=== PATIENT | female | born 1960 | race Caucasian/White ===

== ENCOUNTER 2021-11-23 14:50 | Outpatient (CLI) | payer BC, SELFPAY ==
--- NOTE | ~2021-11-23 | XR_ITS ---
EXAMINATION: XR knee RT min 4V DATE: 11/23/2021 15:18 INDICATION: Right knee pain. TECHNIQUE: 4 views of right knee were obtained. COMPARISON: None. FINDINGS: Bone alignment is normal. No fracture. There is mild osteoarthritis of medial and lateral c ompartments and moderate osteoarthritis of patellofemoral compartment. There is a small knee joint ef fusion. IMPRESSION: 1. Moderate right knee osteoarthritis. 2. Small right knee joint effusion. Reviewed, dictated and finalized at location B.
--- NOTE | ~2021-11-23 | US_ITS ---
EXAMINATION: US venous doppler LE RT DATE: 11/23/2021 15:29 INDICATION: Pain in right lower limb. TECHNIQUE: Grayscale images without and with compression and Doppler images of the right lower extrem ity veins were obtained. COMPARISON: None. FINDINGS: The right common femoral vein, profunda (deep) femoral vein, femoral vein, popliteal vein, peroneal v ein, posterior tibial veins, and greater saphenous vein are patent. Incidental note of compressible v aricosities in the area of pain. IMPRESSION: 1. Patent bilateral lower extremity veins. No evidence of deep venous thrombosis. Varicose veins. Reviewed, dictated and finalized at location K. IMPRESSION: 1. Patent bilateral lower extremity veins. No evidence of deep venous thrombos is. Varicose veins.
== END 2021-11-23 14:51 | disposition home or self-care (01) ==
PROVIDERS: PCP Physician Assistant; Visit Provider Physician Assistant
DX: M17.11 Unilateral primary osteoarthritis, right knee (principal); M25.461 Effusion, right knee
CPT/HCPCS: 73564; 93971

== ENCOUNTER 2023-05-28 01:42 | Day surgery (SDC) | payer BC, SELFPAY ==
[2023-05-17 14:15] VITALS: BMI 40.4
--- NOTE | 2023-05-25 10:11 | SUR.PREOP ---
Patient called and message left regarding upcoming appointment and prep starting on Sunday
[2023-05-28 11:24] VITALS: BP 137/74; PULSE 85; RESP 18; TEMP 36.4; O2SAT 98
[2023-05-28] MEDS: LACTATED RINGERS 1,000 ML 150 ML IV CONT (11:32)
--- NOTE | 2023-05-28 11:38 | P.PNAN_ITS ---
Anes - Initial Pre Proc Eval Procedure: Operation Date: 05/28/23 12:30 Proposed Procedures p Colonoscopy - Jimbo Otoole MD Date/Time: 05/28/23 11:38 Surgeon: Jimbo Otoole MD Pre Op Diagnosis: neoplasm screening Patient Data Age: 62 Gender: F Height: 1.7 m Weight: 118.4 kg Last Vital Signs Temp 97.5 F L 05/28/23 11:24 Pulse 85 05/28/23 11:24 Resp 18 05/28/23 11:24 BP 137/74 05/28/23 11:24 Pulse Ox 98 05/28/23 11:24 O2 Del Method Room Air 05/28/23 11:24 Allergies Allergy/AdvReac Type Severity Reaction Status Date / Time No Known Allergies Allergy Verified 05/28/23 11:22 Home Medications Medication Instructions Recorded Confirmed Type lisinopril 40 mg tablet 40 mg PO DAILY 03/01/21 05/28/23 History montelukast 10 mg tablet 10 mg PO DAILY 03/01/21 05/28/23 History omeprazole 20 mg capsule,delayed 20 mg PO DAILY 03/01/21 05/28/23 History release rosuvastatin 5 mg tablet 5 mg PO DAILY 03/01/21 05/28/23 History albuterol sulfate 90 mcg/actuation 1 - 2 inh inhalation Q4-6H PRN 11/06/22 05/28/23 Rx aerosol inhaler shortness of breath or wheezing #8.5 grams amlodipine 5 mg tablet 10 mg PO DAILY 02/28/23 05/28/23 History Breo Ellipta 100 mcg-25 mcg/dose 1 inh inhalation Q24H #60 ea 03/12/23 05/28/23 Rx powder for inhalation (fluticasone furoate-vilanterol) Patient hx anesthesia problems: none Family hx anesthesia problems: none Results Review: All pre-operative results and documents have been reviewed as part of the pre- operative evaluation. [facility] Past Medical History Medical History Acute respiratory failure CHF (congestive heart failure) Depression GERD (gastroesophageal reflux disease) HTN (hypertension) Pneumonia Surgical History Surgical History Status post tracheostomy Family History Family History Mother Diabetes mellitus Sibling Hypertension Social History Social History Smoking packs per day: 1 Smoking cigarettes per day: 20.0 Years smoked: 30 Smoking pack-years: 30.00 Smoking status: Former smoker Smoking end date: 07/23/18 Alcohol intake: current Anes - Eval Final PreProcedure Day of Procedure 05/28/23 11:38 Patient weight: morbidly obese Heart: regular rate and rhythm Lungs: clear to auscultation Airway: Mallampati scale class II Neurological: alert and oriented Last oral intake: >/= 8 hours ASA classification: III Emergent: no Anesthetic plan: proceed Anesthesia type and monitoring: general GIVS and standard monitoring Results Review: All pre-operative results and documents have been reviewed as part of the pre- operative evaluation. Informed Consent: The patient's anesthetic plan and its attendant risks and benefits were discussed with the patient/family/POA. Questions were solicited and answers provided to the satisfaction of the patient/family/POA.
--- NOTE | 2023-05-28 11:53 | PM.HPGS ---
History of Present Illness History of Present Illness Consent: Risks, benefits, and alternatives have been discussed and questions answered. Patient agrees to proceed with procedure. Chief complaint: neoplasm screening Narrative: Char Contreras is a 62 year old female Presents for screening colonoscopy. Patient has current weight appetite bowel movements are normal. She denies abdominal pain. She has had no bleeding. Family history is noncontributory. Review of Systems Review of Systems: Review of systems noncontributory. [facility] Past Medical History Medical History Acute respiratory failure CHF (congestive heart failure) Depression GERD (gastroesophageal reflux disease) HTN (hypertension) Pneumonia Surgical History Surgical History Status post tracheostomy Family History Family History Mother Diabetes mellitus Sibling Hypertension Social History Social History Smoking packs per day: 1 Smoking cigarettes per day: 20.0 Years smoked: 30 Smoking pack-years: 30.00 Smoking status: Former smoker Smoking end date: 07/23/18 Alcohol intake: current Meds Home Medications and Allergies Home Medications Medication Instructions Recorded Confirmed Type lisinopril 40 mg tablet 40 mg PO DAILY 03/01/21 05/28/23 History montelukast 10 mg tablet 10 mg PO DAILY 03/01/21 05/28/23 History omeprazole 20 mg capsule,delayed 20 mg PO DAILY 03/01/21 05/28/23 History release rosuvastatin 5 mg tablet 5 mg PO DAILY 03/01/21 05/28/23 History albuterol sulfate 90 mcg/actuation 1 - 2 inh inhalation Q4-6H PRN 11/06/22 05/28/23 Rx aerosol inhaler shortness of breath or wheezing #8.5 grams amlodipine 5 mg tablet 10 mg PO DAILY 02/28/23 05/28/23 History Breo Ellipta 100 mcg-25 mcg/dose 1 inh inhalation Q24H #60 ea 03/12/23 05/28/23 Rx powder for inhalation (fluticasone furoate-vilanterol) Allergies Allergy/AdvReac Type Severity Reaction Status Date / Time No Known Allergies Allergy Verified 11/06/23 11:22 Vital Signs Vital Signs - 24 hr 05/28/23 11:24 Temperature 97.5 F L Pulse Rate 85 Respiratory Rate 18 Blood Pressure 137/74 Pulse Oximetry 98 Oxygen Delivery Room Air Exam Narrative: Physical exam reveals patient to be alert. Vital signs stable. HEENT exam is unremarkable. Patient is anicteric. Lungs are clear to auscultation and percussion. Heart is without murmur or extra sounds. Abdomen bowel sounds are present soft nontender with no organomegaly. Digital external rectal exam normal. Assessment and Plan Assessment and plan (1) Encounter for screening colonoscopy: Code(s): Z12.11 - Encounter for screening for malignant neoplasm of colon Status: Acute Assessment and Plan: Patient presents today for screening colonoscopy. She appears to be at average risk for colon polyps. Further recommendations may be given after endoscopy.
[2023-05-28 12:59] VITALS: BP 124/64; PULSE 69; RESP 20; O2SAT 100
[2023-05-28 13:09] VITALS: BP 132/71; PULSE 64; RESP 20; O2SAT 99
[2023-05-28 13:19] VITALS: BP 141/72; PULSE 61; RESP 17; O2SAT 99
== END 2023-05-28 13:27 | disposition home or self-care (01) ==
PROVIDERS: PCP Physician Assistant; Visit Provider Internal Medicine Gastroenterology
PROC: 0DJD8ZZ Inspection of Lower Intestinal Tract, Via Natural or Artificial Opening Endoscopic (ICD-10-PCS; CPT 45378; principal; 2023-05-28 12:30)
DX: Z12.11 Encounter for screening for malignant neoplasm of colon (principal); K64.8 Other hemorrhoids; K63.5 Polyp of colon; I11.0 Hypertensive heart disease with heart failure; I50.9 Heart failure, unspecified; F32.A Depression, unspecified; K21.9 Gastro-esophageal reflux disease without esophagitis; E66.01 Morbid (severe) obesity due to excess calories; Z68.41 Body mass index [BMI] 40.0-44.9, adult; Z93.0 Tracheostomy status; Z79.51 Long term (current) use of inhaled steroids; Z87.891 Personal history of nicotine dependence; Z87.09 Personal history of other diseases of the respiratory system
CPT/HCPCS: 45385; 88305; J2704; J7120

== ENCOUNTER 2025-06-25 08:32 | Outpatient (CLI) | payer MEDICARE, SELFPAY ==
--- NOTE | ~2025-06-25 | MM_ITS ---
EXAMINATION: MM screening meliza BI w prieto HISTORY: Screening. TECHNIQUE: Craniocaudal and mediolateral oblique 3-D tomosynthesis images were obtained and synthetic 2-D images were generated. CAD analysis was submitted and interpreted. COMPARISON: None available. BREAST PARENCHYMAL COMPOSITION: Not Dense: The breasts are almost entirely fatty FINDINGS: No suspicious masses are seen. There are no suspicious calcifications. No unexplained architectural distortion is seen. There are no skin or nipple abnormalities identified. There is no adenopathy seen on the images submitted. IMPRESSION: No mammographic evidence to suggest malignancy is seen. The patient may return to screening mammography as per ACR guidelines. BI-RADS 1 - Negative. Reviewed, dictated and finalized at location C. O GAME DESIGNER
--- OUTSIDE RECORDS SUMMARY | 2025-06-25 08:57 | XMS_ITS | Clinical Summary ---
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 Gender Identity Not on file Sexual Orientation Not on file Plan of Treatment Health Maintenance Due Date Last Done Comments Hepatitis C Virus (HCV) Screening 1960 TdaP Immunization 1960 Pap Smear 11/05/1980 Cervical Cancer Screening (CCS) 11/05/1989 HPV/Cotest 11/05/1989 Cologuard 11/05/2004 Colonoscopy 11/05/2004 Colorectal Cancer Screening 11/05/2004 Immunochemical Fecal Occult Blood 11/05/2004 Pneumococcal Immunization (5 0+ years) (1 of 1 - PCV) 11/05/2009 Zoster Immunization (1 of 2) 11/05/2009 Influenza Immunization (#1) 2025 06/09/2020 SARS-COV-2 Immunization ( - season) 2025 Respiratory Syncytial Virus (RSV) Immunization (Adult) (1 - 1-dose 75+ series) 11/05/2034 Hepatitis B Immunization Aged Out No longer eligible based on patient's age to complete this topic Human Papillomavirus (HPV) Immunization Aged Out No longer eligible b ased on patient's age to complete this topic Meningococcal Immunization (ACWY) Aged Out No longer eligible based on patient's age to complete this topic Rotavirus Immunization Aged Out No lo nger eligible based on patient's age to complete this topic
--- OUTSIDE RECORDS SUMMARY | 2025-06-25 08:57 | XMS_ITS | Clinical Summary ---
Author Organization [facility] [employer] Address [address] [place] [address] Care Team Providers Care Community Development Manager Name Role Phone Shelbie Frey RN Unavailable [phone] Alida Salomon Primary Care Pr ovider Source Comments [facility],non-owned Affiliates and Associated Physician Practices is amultiple site organization consisting of ambulatory clinics and hospital sitesin [place], [place], [place] and [place]. This disclosure is being madepursuant to the Care Everywhere program and may not contain all information available regarding this patient. Last updated 18.[facility] [employer] Allergies No known active allergies Medications * Be aware that medications may not be up to date on this document. Alwaysverify current medications with the patient. montelukast (SINGULAIR) 10 MG tablet Take 10 mg by mouth at bedtime 9 Active FLUoxetine (PROZAC) 20 MG capsule Take 20 mg by mouth once daily Active lisinopril (PRINIVIL; ZESTRIL) 40 MG tablet Take 40 mg by mouth once daily Active amLODIPine (NORVASC) 5 MG tablet Take 5 mg by mouth once daily Active albuterol HFA (PROVENTIL;VENT ROSCOE;PROAIR) 108 (90 Base) MCG/ACT inhaler Inhale 1 puff by mouth every 6 hours as needed 9 Active HYDROcodone-ad taminophen (NORCO) 5-325 MG tablet Take 1 tablet by mouth every 4 hours as needed (Breakthrough pain not controlled with ibuprofen and tylenol) 6 tablet 9 Active BREO ELLIPTA 100-25 MCG/INH inhaler Inhale 1 puff by mouth once daily 0 Active rosuvastatin (CRESTOR) 5 MG tablet Take 5 mg by mouth once daily Active omeprazole (PriLOSEC) 20 MG capsuleIndicati ons:Tracheal stenosis TAKE 1 CAPSULE BY MOUTH EVERY DAY 90 capsule 1 2 Active Active Problems Problem Noted Date Diagnosed Date Cardiomyopathy, idiopathic 11/14/[address] 08/20/2018 Pneumomediastinum 08/20/2018 Acute on chronic respiratory failure with hypoxi a 08/19/2018 Pneumonia of left lung due to Pseudomonas specie s Tracheal stenosis Immunizations Immunization Administration Dates Next Due INFLUENZA VACCINE, QUADR. (F LUZONE; FLULAVAL; FLUARIX; AFLURIA QUADRIVALENT; 6MO+), 0.5 ML (IIV4) 08/23/2018 Family History Medical History Relation Name Comments Diabetes - Type 1 Father Diabetes - Type 1 Mother Hypertension Sister Relation Name Status Comments Father Mother Sister Social History Tobacco Use Types Packs/Day Years Used Date Smoking Tobacco: Former Cigarettes 2 34 0 07/1984 - 07/2018 Smokeless Tobacco: Never Tobacco Cessation:Ready to Q uit: No; Counseling Given: Yes Alcohol Use Standard Drinks/Week Comments No 0 (1 standard drink = 0.6 oz pur e alcohol) Comments No Sex and Gender Information Value Date Recorded Sex Assigned at Not on file 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 Gender Identity Not on file Sexual Orientation Not on file Last Filed Vital Signs Vital Sign Reading Time Taken Comments Blood Pressure 161/81 02/03/2022 1:54 PM CDT Pulse 81 02/03/2022 1:54 PM CDT Temperature 36.5 C (97.7 F) 02/27/2019 11:05 AM CDT Respiratory Rate 15 02/27/2019 11:45 AM CDT Oxygen Saturation 98% 02/27/2019 11:45 AM CDT Inhaled Oxygen Concentration 100% 12/26/2018 8 :00 AM CDT Weight 130 kg (286 lb 9.6 oz) 02/03/2022 1:54 PM CDT Height 170.2 cm (5' 7) 02/03/2022 1:54 PM CDT Body Mass Index 44.89 02/03/2022 1:54 PM CDT Plan of Treatment Health Maintenance Due Date Last Done Comments BONE DENSITY TESTING 1960 COLON MONITORING 1959 COLONOSCOPY - COLON CA SCREENING 1959 CT COLONOGRAPHY - COLON CA SCREENING 1959 FIT - COLON CA SCREENING 1959 FLEX SIG - COLON CA SCREENING 1959 MAMMOGRAM 1959 HIV SCREENING 11/05/1974 DTAP/TDAP/TD VACCINES (1 - Tdap) 11/05/1978 PAP SMEAR 11/05/1980 Cervical Cancer Screening 11/05/1989 PAP with HPV 11/05/1989 LUNG CANCER SCREENING 11/05/2009 PNEUMOCOCCAL VACCINE 50+ (1 of 1 - PCV) 11/05/2009 Respiratory Syncytial Virus (RSV) Vaccine Pt: or over 60 yrs (1 - Risk 50-74 years 1-dose series) 11/05/2009 ZOSTER VACCINE (1 of 2) 11/05/2009 SCREENING FOR DIABETES 02/03/2022 9, 12/25/2018, 12/25/2018, Additional history exists COLOGUARD (AGES 45-75) - COLON CA SCREENING 04/14/2022 04/14/2019 Colorectal Cancer Screening 04/14/2022 DEPRESSION SCREENING 07/23/2024 COVID-19 VACCINE ( season) 2025 07/08/2021 INFLUENZA VACCINE (#1) 2025 06/09/2020, 2018 HEPATITIS C SCREENING Completed 08/26/2018 HEPATITIS B VACCINE Aged Out No longe r eligible based on patient's age to complete this topic HIB VACCINE Aged Out No longer eligi ble based on patient's age to complete this topic HPV VACCINE Aged Out No longer eligi ble based on patient's age to complete this topic MENINGOCOCCAL (Group B) VACCINE SHARED DECISION-MAKING Aged Out No longer eligible based on patient's age to complete this topic MENINGOCOCCAL GROUPS A/C/Y/W VACCINE Aged Out No longer eligible based on patient's age to complete this topic Medical Devices Implanted Type Area Wellness Instructor Device Identifier Shelf Expiration Date Model / Serial / Lot Evicel Implanted:Qty: 1 on 12/24/2018 by Armando Dennis MD at [facility] N/A: [employer] EVICEL / [id number] / [id number] Description:Thawed on 019 Procedures Procedure Name Priority Date/Time Associated Diagnosis Comments BASIC METABOLIC PANEL (CALCIUM TOTAL) Routine 12/27/2018 3:43 AM CDT HEPATITIS SCREEN ACUTE Routine 08/26/2018 12:01 PM RADIO ENGINEERING TEACHER from Last 3 Months or Most Recently Relevant to Health Maintenance Results * (ABNORMAL) BASIC METABOLIC PANEL (CALCIUM TOTAL) (12/27/2018 3:43 AM CDT) BUN 24 7 - 26 mg/dL 12/27/2018 4:14 AM [facility] Creatinine 1.1 0.6 - 1.2 mg/dL 12/27/2018 4:14 AM [facility] Sodium 139 136 - 145 mmol/L 12/27/2018 4:14 AM [facility] Potassium 4.2 3.5 - 4.5 mmol/L 12/27/2018 4:14 AM [facility] Chloride 102 98 - 107 mmol/L 12/27/2018 4:14 AM [facility] CO2 27 22 - 29 mmol/L 12/27/2018 4:14 AM [facility] Glucose 86 70 - 115 mg/dL 12/27/2018 4:14 AM [facility] Calcium 8.9 8.4 - 10.2 mg/dL 12/27/2018 4:14 AM [facility] Anion Gap 14 8 - 18 12/27/2018 4:14 AM [facility] BUN/Creatinine Ratio 22 7 - 23 12/27/2018 4:14 AM [facility] Osmolality Calculated 291 270 - 300 mOsm/kg 12/27/2018 4:14 AM CDT [facility] eGFR 51(L) >60 mL/min/1.7 3 m2 12/27/2018 4:14 AM T [facility] Blood BLOOD SPECIMEN / Unknown Lab Venipuncture / Unknown 12/27/2018 3:43 AM CDT 12/27/2018 3:50 AM CDT Kris Montaño MD LAB - CHEMISTRY ORDERABLES Final Result Performing Organization Address City/[facility]/ZIP Co de Phone Number [address] [phone] * HEPATITIS SCREEN ACUTE (08/26/2018 12:01 PM RADIO ENGINEERING TEACHER) Hepatitis A Virus Antibody IgM Non-react rancho Non-reac tive 08/26/2018 12:57 PM RADIO ENGINEERING TEACHER [facility] Hepatitis B Virus Surface Antigen Non-react rancho Non-reac tive 08/26/2018 12:57 PM [facility] Hepatitis B Core Virus Antibody IgM Non-react rancho Non-reac tive 08/26/2018 12:57 PM [facility] Hepatitis C Antibody Non-react rancho Non-reac tive 08/26/2018 12:57 PM [facility] Comment: Hepatitis C Antibody screen indicates no serologic evidence of past or current infection with Hepatitis C Virus. Patients with unexplained liver disease who are immunocompromised or suspected of having acute Hepatitis C infection may benefit from Nucleic Acid Test (FELICIANO) for Hepatitis C Viral RNA to confirm Hepatitis C status. Blood BLOOD SPECIMEN / Unknown Venipuncture / Unknown 08/26/2018 12:01 PM RADIO ENGINEERING TEACHER 08/26/2018 12:11 PM RADIO ENGINEERING TEACHER us More Mckeon MD LAB - CHEMISTRY ORDERABLES Final Result [address] [phone] from Last 3 Months or Most Recently Relevant to Health Maintenance Insurance ANTHEM ANTHEM Advance Directives * Full Code (Latest Code Status on File) Date Activated Date Inactivated Comments 02/27/2019 7:00 AM 02/27/2019 2:00 PM * Full Code Date Activated Date Inactivated Comments 12/24/2018 3:03 PM 12/30/2018 10:19 AM * Full Code Date Activated Date Inactivated Comments 12/24/2018 4:51 AM 12/24/2018 3:03 PM * Full Code Date Activated Date Inactivated Comments 11/27/2018 4:00 PM 11/28/2018 11:40 AM * Full Code Date Activated Date Inactivated Comments 08/19/2018 11:59 PM 09/03/2018 12:17 PM Care Teams Community Development Manager Relationship Specialty Start Date End Date Alida Salomon PA [address] [place] [id number] PCP - General 11/15/18 Shelbie Frey, RN Field Sales Specialist 08/27/18
--- OUTSIDE RECORDS SUMMARY | 2025-06-25 08:57 | XMS_ITS | Clinical Summary ---
Author Organization [facility] [place] [address] Address [address] [place] [address] Care Team Providers Care Hunter Skin Diver Name Role Phone Alida Bazan Primary Care Pr ovider Allergies No known active allergies Medications amLODIPine (NORVASC) 10 mg tablet Take 1 tablet (10 mg total) by mouth daily 0 09/13/2018 Active lisinopril (PRINIVIL,ZESTRI L) 40 mg tabletIndication s:Systolic dysfunction without heart failure Take 1 tablet (40 mg total) by mouth daily 90 tablet 1 10/31/2018 Active montelukast (SINGULAIR) 10 mg tablet Take 1 tablet (10 mg total) by mouth daily 2 12/15/2018 Active rosuvastatin (CRESTOR) 5 mg tablet Take 1 tablet (5 mg total) by mouth daily Active omeprazole (PriLOSEC) 20 mg capsule Take by mouth daily Active fluticasone propion-salmeter oL (ADVAIR DISKUS) 250-50 mcg/dose diskus inhaler INHALE 1 PUFF BY MOUTH TWICE DAILY. RINSE MOUTH AND SPIT AFTER. 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 Gender Identity Not on file Sexual Orientation Not on file Last Filed Vital Signs Vital Sign Reading Time Taken Comments Blood Pressure 120/77 10/23/2024 12:22 PM CDT Pulse 70 10/23/2024 12:22 PM CDT Temperature 36.9 C (98.5 F) 10/23/2024 12:22 PM CDT Respiratory Rate 16 10/23/2024 12:22 PM CDT Oxygen Saturation 99% 10/23/2024 12:22 PM CDT Inhaled Oxygen Concentration - - Weight 109.8 kg (242 lb) 10/23/2024 12:22 PM CDT Height 170.2 cm (5' 7) 02/20/2019 10:26 AM CDT Body Mass Index 37.9 02/20/2019 10:26 AM CDT Plan of Treatment Health Maintenance Due Date Last Done Comments Breast Cancer Screening-Mammogram 1960 Cervical Cancer Screening 1959 Colon Cancer Screening-Colonoscopy 1959 Depression Screening 1959 Fall Risk Assessment 1959 Hepatitis C Screening 1959 Osteoporosis Screening-Bone Density Scan 1959 Hepatitis B Screening 11/05/1977 Pneumococcal vaccine 65+ (1 of 1 - PCV) 11/05/2009 Zoster Vaccine (1 of 2) 11/05/2009 Well Visit 65+ 11/05/2024 Covid-19 Vaccine ( - season) 2025, 09/30/2020 Influenza Vaccine (#1) 2025 06/09/2020, 2018 DTaP/Tdap/Td Vaccine (2 - Td or Tdap) 05/20/2034 Insurance MEDICARE [facility] Care Teams Hunter Skin Diver Relationship Specialty Start Date End Date Alida Bazan PA PCP - General Physician Hyster Machine Operator 09/19/18
== END 2025-06-25 08:33 | disposition home or self-care (01) ==
LOC: ANHFOHIMG 08:36
PROVIDERS: PCP Physician Assistant; Visit Provider Advanced Practice Midwife
DX: Z12.31 Encounter for screening mammogram for malignant neoplasm of breast (principal)
CPT/HCPCS: 77063; 77067